=== PATIENT | female | born 1955 | race Caucasian/White ===

== ENCOUNTER 2018-08-03 11:30 | Emergency (ER) | payer OTHER ==
[2018-08-03] MEDS: CYCLOBENZAPRINE 10 MG TAB PO (13:30)
[2018-08-03] MEDS: traMADol 50 MG TAB PO (13:30)
[2018-08-03] MEDS: KETOROLAC 30 MG INJ IM (13:31)
[2018-08-03] MEDS: DEXAMETHASONE 10 MG/ML 1 ML INJ IM (13:32)
[2018-08-03] MEDS: HYDROCODONE/APAP (5/325) TAB PO (15:31)
== END 2018-08-03 15:44 | disposition home or self-care (01) ==
LOC: FTE 11:30
DX: M54.42 Lumbago with sciatica, left side (principal); M54.41 Lumbago with sciatica, right side; M54.2 Cervicalgia; M19.90 Unspecified osteoarthritis, unspecified site
CPT/HCPCS: 96372; 99284-25